=== PATIENT | female | born 1930 | race Caucasian/White ===

== ENCOUNTER 2016-10-16 08:08 | Day surgery (SDC) | payer MEDICARE ==
[~2016-10-16 08:08] MED LIST: ALBUTEROL I0.5 ML/EA IPV; ASPIRIN325 MG PO; COLACE100 M1 PO; COUMADIN6 MG PO; ENALAPRIL MALEA20 M1 PO; HYDROCHLOROTHIA25 MG PO; LASIX20 M1 PO; LEVAQUIN500 MG PO; LOPRESSOR25 MG/TAB PO; MELOXICAM15 M1 PO; METOPROLOL TART25 M1 PO; MILK OF MA400 MG/5 M PO; MIRALAX17 G2 PO; NORCO 5/325 TAB1 TAB PO; PRILOSEC20 M1 PO; SIMVASTATIN20 M1 PO; SIMVASTATIN20 MG PO; SPIRONOLACTONE25 M2 PO; SPIRONOLACTONE25 MG PO; SYSTANE 0.3-0.1 EACH EACH EYE; TYLENOL #31 TA1 PO; TYLENOL EXTRA500 M1 PO; TYLENOL LI650 MG/20 PO; ULTRAM50 MG PO; VITAMIN D3400 UNI4 PO
[2016-10-16 09:10] LABS: BASO % 0.1 % (0-2); EOS % 0.4 % (0-7); HCT-HEMATOCRIT 40.1 % (34.0-49.0); HGB-HEMOGLOBIN 12.9 gm/dl (12.0-15.5); IMMATURE GRANULOCYTES ABSOLUTE 0.01 tho/cmm (0-0.03); IMMATURE GRANULOCYTES PERCENT 0.1 % (0-0.3); LYMPH % 22.1 % (20-45); LYMPH ABSOLUTE COUNT 1.5 tho/cmm (0.8-4.5); MCH (MEAN CORPUSCULAR HGB) 27.3 pg (28.0-32.0); MCHC MEAN CORPUSCULAR HGB CONC 32.2 % (32.0-36.0); MEAN PLATELET VOLUME 9.1 cmc (9.4-12.4); MONO % 7.5 % (0-12); MONOCYTE ABSOLUTE COUNT 0.5 tho/cmm (0.0-1.2); NEUTROPHIL ABSOLUTE COUNT 4.8 tho/cmm (1.6-8.0); NEUTROPHIL-AUTOMATED 4.8 tho/cmm (1.6-8.0); NEUTROPHILS % 69.8 % (40-80); PLATELET COUNT 382 tho/cmm (150-450); RED BLOOD COUNT 4.72 mil/cmm (4.00-5.20); RED CELL DISTRIBUTION WIDTH 15.5 % (12.4-16.4); WHITE BLOOD COUNT 6.8 tho/cmm (4.0-10.0)
[2016-10-16 09:13] LABS: PROTHROMBIN TIME 11.2 SECONDS (9.0-13.6)
== END 2016-10-16 12:50 ==
LOC: CTSCAN 08:08 → SHSB 08:09
PROVIDERS: Radiology Diagnostic Radiology
PROC: 0BBK3ZX Excision of Right Lung, Percutaneous Approach, Diagnostic (ICD-10-PCS; principal; 2016-10-16)
DX: C45.7 Mesothelioma of other sites (principal); Z98.890 Other specified postprocedural states; Z98.41 Cataract extraction status, right eye; Z98.42 Cataract extraction status, left eye; Z90.710 Acquired absence of both cervix and uterus; Z96.651 Presence of right artificial knee joint; Z87.891 Personal history of nicotine dependence
CPT/HCPCS: J3010; J7030